=== PATIENT | male | born 1975 | race Two or more races ===

== ENCOUNTER 2024-09-26 22:17 | Inpatient (IN) | payer OTHER ==
[~2024-09-26] VITALS: Ht 170.2 cm; Wt 77.1 kg
[2024-09-26] MEDS ORDERED: CRESTOR40 MG PO (22:36)
[2024-09-26] MEDS ORDERED: TETANUS & DIPHTHERIA TOX,ADULT 0.5 ML VIAL IM STA (23:31)
[2024-09-26] MEDS ORDERED: CEFTRIAXONE SODIUM 500 MG VIAL IM STA (23:32)
[2024-09-27 00:36] LABS: HEMATOCRIT 42.9 % (39.0-48.0); HEMOGLOBIN 14.9 g/dL (13-16.00); MEAN CORPUSCULAR HEMOGLOBIN 30.2 pg (27.00-32.0); MEAN CORPUSCULAR HGB CONC 34.7 g/dl (32.0-36.0); PLATELET COUNT 204 K/uL (150-450); RED BLOOD COUNT 4.93 M/uL (4.00-6.00); RED CELL DISTRIBUTION WIDTH 13.2 % (11.5-14.5)
[2024-09-27 03:23] LABS: INR 1.12; PARTIAL THROMBOPLASTIN TIME 30.6 SECONDS (22.0-34.0); PROTHROMBIN TIME 12.1 SECONDS (9.0-11.5)
[2024-09-27 03:29] LABS: BILIRUBIN TOTAL 0.96 mg/dL (0.3-1.2); CALCIUM 9.3 mg/dL (8.5-10.1); CREATININE SERUM 0.9 mg/dL (0.70-1.30); GFR 90.45; GLOBULINA 3.3 G/DL (2.4-3.5); POTASSIUM 3.66 mEq/L (3.5-5.1); TOTAL PROTEIN 7.3 gm/dL (6.4-8.2)
[2024-09-27] MEDS ORDERED: PIPERACILLIN/TAZOBACTAM SODIUM 3.375 GM VIAL IV ONE (06:00)
[2024-09-27 07:18] LABS: HEMATOCRIT 40.5 % (39.0-48.0); HEMOGLOBIN 14.2 g/dL (13-16.00); MEAN CELL VOLUME 86.1 fL (80.0-100.00); MEAN CORPUSCULAR HEMOGLOBIN 30.2 pg (27.00-32.0); MEAN CORPUSCULAR HGB CONC 35.1 g/dl (32.0-36.0); PLATELET COUNT 180 K/uL (150-450); RED CELL DISTRIBUTION WIDTH 13.1 % (11.5-14.5)
[2024-09-27] MEDS ORDERED: VANCOMYCIN HCL 1,000 MG VIAL IV SCH (09:00)
[2024-09-27] MEDS ORDERED: 0.9 % SODIUM CHLORIDE 1,000 ML IV SCH (11:00)
[2024-09-27] MEDS ORDERED: ACETAMINOPHEN 325 MG TABLET PO SCH (11:02)
[2024-09-27] MEDS ORDERED: FAMOTIDINE/PF 20 MG in 0.9 % SODIUM CHLORIDE 100 ML IV SCH (11:02)
[2024-09-27] MEDS ORDERED: PIPERACILLIN/TAZOBACTAM SODIUM 3.375 GM in 0.9 % SODIUM CHLORIDE 100 ML IV SCH (12:00)
[2024-09-27 12:36] LABS: PH,URINE 6.5 (5.0-8.0); URINE APPEARANCE Clear; URINE BILIRRUBIN Negative (NEGATIVE); URINE BLOOD Trace; URINE COLOR Yellow; URINE GLUCOSE Negative (NEGATIVE); URINE KETONE Negative (NEGATIVE); URINE LEUKOCYTE Negative; URINE NITRATE Negative; URINE PROTEIN Negative (NEGATIVE); URINE UROBILINOGEN 0.2 E.U./dl
[2024-09-27 12:41] LABS: URINE RBC 11.2 uL (0.0-20.8)
[2024-09-27 12:56] LABS: URINE BACTERIA 0 uL (0.0-1933); URINE EPITHELIAL CELLS 0.4 uL (0.0-38.8); URINE WBC 0.4 uL (0.0-23.2)
[2024-09-27 17:21] VITALS: BP 121/84
[2024-09-27] MEDS ORDERED: ACETAMINOPHEN 500 MG GEL..CAP PO SCH (20:00)
[2024-09-28 02:47] VITALS: BP 127/74; O2SAT 95
[2024-09-28 07:41] LABS: HEMATOCRIT 38.7 % (39.0-48.0); HEMOGLOBIN 13.4 g/dL (13-16.00); MEAN CELL VOLUME 86.9 fL (80.0-100.00); MEAN CORPUSCULAR HEMOGLOBIN 30.1 pg (27.00-32.0); MEAN CORPUSCULAR HGB CONC 34.7 g/dl (32.0-36.0); PLATELET COUNT 194 K/uL (150-450); RED BLOOD COUNT 4.45 M/uL (4.00-6.00)
[2024-09-28 08:23] VITALS: BP 106/67
[2024-09-28 09:36] LABS: ALBUMIN 3.2 gm/dL (3.4-5.0); BILIRUBIN TOTAL 0.96 mg/dL (0.3-1.2); CALCIUM 8.4 mg/dL (8.5-10.1); CREATININE SERUM 0.92 mg/dL (0.70-1.30); GFR 88.18; GLOBULINA 2.7 G/DL (2.4-3.5); TOTAL PROTEIN 5.9 gm/dL (6.4-8.2)
[2024-09-28] MEDS ORDERED: levoFLOXacin IN DEXTROSE 5 % 5 MG/ML PIGGYBAG IV NR (14:00)
[2024-09-28 19:37] VITALS: BP 119/77; O2SAT 97
[2024-09-29] VITALS: BP 124/68; O2SAT 100
[2024-09-29 08:43] VITALS: BP 132/82; O2SAT 98
[2024-09-29] MEDS ORDERED: levoFLOXacin IN DEXTROSE 5 % 150 ML IV SCH (09:00)
[2024-09-29 13:32] LABS: HEMATOCRIT 37.8 % (39.0-48.0); HEMOGLOBIN 12.8 g/dL (13-16.00); MEAN CELL VOLUME 87.8 fL (80.0-100.00); MEAN CORPUSCULAR HEMOGLOBIN 29.8 pg (27.00-32.0); MEAN CORPUSCULAR HGB CONC 33.9 g/dl (32.0-36.0); PLATELET COUNT 188 K/uL (150-450)
[2024-09-29 18:18] VITALS: BP 136/85; O2SAT 97
[2024-09-30 01:58] VITALS: BP 118/82; O2SAT 96
[2024-09-30 09:46] VITALS: BP 137/74; O2SAT 98
[2024-09-30 17:13] VITALS: BP 141/85; O2SAT 97
[2024-10-01 01:15] VITALS: BP 120/72; O2SAT 97
[2024-10-01] MEDS ORDERED: LACTOBACILLUS ACIDOPHILUS 1 CAP CAP PO SCH (09:00)
[2024-10-01 10:27] VITALS: BP 121/71; O2SAT 97
[2024-10-01 17:39] VITALS: BP 131/85; O2SAT 96
[2024-10-02 01:29] VITALS: BP 126/76; O2SAT 99
[2024-10-02 09:01] VITALS: BP 114/71; O2SAT 97
== END 2024-10-02 15:45 | disposition home or self-care (01) | DRG 603 ==
LOC: ER 22:19 → MEDJ 09-27 13:34
PROVIDERS: General Practice; Internal Medicine; Internal Medicine Infectious Disease; ADMIT Internal Medicine; ATTEND Internal Medicine
PROC: BL40ZZZ Ultrasonography of Upper Extremity Connective Tissue (ICD-10-PCS; principal; 2024-09-30)
DX: L03.114 Cellulitis of left upper limb (principal); M70.32 Other bursitis of elbow, left elbow; S51.012A Laceration without foreign body of left elbow, initial encounter; W18.09XA Striking against other object with subsequent fall, initial encounter; Y93.01 Activity, walking, marching and hiking; Y92.821 Forest as the place of occurrence of the external cause; Y99.9 Unspecified external cause status; B96.89 Other specified bacterial agents as the cause of diseases classified elsewhere